=== PATIENT | male | born 1970 | race Caucasian/White ===

== ENCOUNTER → 2024-01-18 | Outpatient (CLI) | payer OTHER | LOC: M RAD 12:59 → MERGE 12:59 | PROVIDERS: ATTEND Otolaryngology | DX: J32.0 Chronic maxillary sinusitis (principal); J34.89 Other specified disorders of nose and nasal sinuses ==

== ENCOUNTER 2025-03-22 12:06 | Emergency (ER) | payer OTHER ==
[~2025-03-22] VITALS: Ht 172.7 cm; Wt 91.0 kg
[2025-03-22 12:08] VITALS: TEMP 97.7
[2025-03-22 12:58] LABS: BASO # 0.1 10^3/uL (0.0-0.2); BASO % 1.4 % (0.0-1.0); EOS # 0.1 10^3/uL (0.0-0.5); EOS % 1.9 % (0.0-3.0); LYMPH # 1.2 10^3/uL (1.5-5.0); LYMPH % 20.4 % (24.0-44.0); MONO # 0.4 10^3/uL (0.0-0.8); MONO % 7.4 % (2.0-8.0); NEUTROPHILS # 4.0 10^3/uL (1.5-8.5); NEUTROPHILS % 68.4 % (36.0-66.0); PLATELET COUNT, AUTOMATED 221 10^3/uL (150-450)
[2025-03-22 13:23] LABS: INR 0.99
[2025-03-22 13:25] LABS: ALT/SGPT 127.0 U/L (7.0-40); AST/SGOT 48.0 U/L (<34); CALCIUM LEVEL 10.0 MG/DL (8.5-10.1); CARBON DIOXIDE LEVEL 26.0 MMOL/L (20-31); CHLORIDE LEVEL 105.0 MMOL/L (98-107); CK-MB VALUE MASS 1.1 NG/ML (<3.6); CREATININE FOR GFR 1.01 MG/DL (0.70-1.30); GLOMERULAR FILTRATION RATE 89.5 (>56); POTASSIUM SERUM 4.1 MMOL/L (3.5-5.1); SODIUM LEVEL 140.0 MMOL/L (136-145)
[2025-03-22 13:27] LABS: CPK CREATINE PHOSPHOKINASE 130.0 U/L (46-171); MB/CK RELATIVE INDEX 0.84 (< OR =4)
[2025-03-22] MEDS ORDERED: ISOVUE-370 76% 100 ML VIAL As Ordered ONE (13:41)
[2025-03-22 14:25] LABS: CK-MB VALUE MASS 1.2 NG/ML (<3.6)
[2025-03-22 14:26] LABS: CPK CREATINE PHOSPHOKINASE 112.0 U/L (46-171); MB/CK RELATIVE INDEX 1.07 (< OR =4)
[2025-03-22 16:15] VITALS: BP 163/97; O2SAT 97
== END 2025-03-22 16:32 | disposition home or self-care (01) ==
LOC: M ED 12:06
DX: R07.9 Chest pain, unspecified (principal); I10 Essential (primary) hypertension; E78.5 Hyperlipidemia, unspecified; K21.9 Gastro-esophageal reflux disease without esophagitis; Z88.8 Allergy status to other drugs, medicaments and biological substances
CPT/HCPCS: 36415; 71045; 71275; 80048; 80076; 82550; 82553; 84484; 85025; 85610; 85730; 87486; 87581; 87633; 87798; 93005; 93041; 94760; 99285; Q9967